=== PATIENT | male | born 1945 | race Caucasian/White ===

== ENCOUNTER 2016-11-14 08:53 | Emergency (ER) | payer MEDICARE ==
[2016-11-14 09:05] VITALS: RESP 18
[2016-11-14] MEDS ORDERED: DIPH,PERTUS(ACELL)TETVAC-LF 0.5 ML VIAL IM ONE (09:33)
[2016-11-14] MEDS ORDERED: DOXYCYCLINE 50 MG CAP PO STA (09:34)
--- NOTE | 2016-11-14 09:49 | ED ---
General Adult HPI - General Chief complaint: Animal Bite Stated complaint: cat scratch Time Seen by Provider: 11/14/16 09:12 Source: patient, RN notes reviewed Mode of arrival: ambulatory Limitations: no limitations - History of Present Illness Initial comments: 71-year-old male presents to the emergency department with a chief complaint of scratch to the right arm. Patient states that they have a cat that is an outdoor cat around the house. Patient states that it has been in the house for about 3 months now. Patient states the cat was started on Versed tried to get him down and on jumping down the cat scratched his arm. Patient does not know if the cat is up-to-date on vaccinations. Patient states that he has not had his tetanus vaccination and he does not know how long. Patient states that he just has the cut to the arm. Patient states he put Neosporin on it and came here. Patient states he hasn't had any fever chills with this. Patient denies any other injuries from the incident.Patient denies any recent fever, chills, shortness of breath, chest pain, back pain, abdominal pain, nausea vomiting, numbness or tingling, dysuria or hematuria, constipation or diarrhea, headaches or visual changes, or any other current symptoms. - Related Data Home Medications Medication Instructions Recorded Confirmed Advanced Memory Complex 1 tab PO DAILY 05/21/15 11/14/16 Bacopin (Herbal Memory Supplement) 1 tab PO DAILY 05/21/15 11/14/16 Multivit-Min/FA/Lycopene/Lut 1 tab PO DAILY 05/21/15 11/14/16 [Centrum Silver Tablet] Pregabalin [Lyrica] 200 mg PO BID 05/21/15 11/14/16 Propranolol [Inderal] 20 mg PO BID 11/14/16 11/14/16 Vitamin B Complex 1 tab PO DAILY 11/14/16 11/14/16 Previous Rx's Medication Instructions Recorded Doxycycline [Vibramycin] 100 mg PO Q12HR #20 capsule 11/14/16 Allergies Allergy/AdvReac Type Severity Reaction Status Date / Time Penicillins Allergy Unknown Verified 11/14/16 09:36 Review of Systems ROS Statement: Those systems with pertinent positive or pertinent negative responses have been documented in the HPI. ROS Other: All systems not noted in ROS Statement are negative. Past Medical History Past Medical History: Cancer, Prostate Disorder Additional Past Medical History / Comment(s): CARTER FEET NEUROPATHY, HX OF STOMACH ULCER, HX PROSTATE CA. 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 Cataract surgery R eye in 2014. Past Anesthesia/Blood Transfusion Reactions: No Reported Reaction Past Psychological History: No Psychological Hx Reported Smoking Status: Former smoker Past Alcohol Use History: Occasional Past Drug Use History: None Reported - Past Family History Mother Family Medical History: No Reported History Brother(s) Family Medical History: Cancer, Deep Vein Thrombosis (DVT) Additional Family Medical History / Comment(s): cancer-unknown General Exam - General Exam Comments Initial Comments: General: The patient is awake and alert, in no distress, and does not appear acutely ill. Neck: The neck is supple, there is no tenderness. Cardiovascular: There is a regular rate and rhythm. No murmur, rub or gallop is appreciated. Respiratory: Lungs are clear to auscultation, respirations are non-labored, breath sounds are equal. No wheezes, stridor, rales, or rhonchi. Musculoskeletal: Sensation intact with 2+ pulses. Full Range of motion of right elbow and right wrist. Patient does appear to have a 6 cm scratch to the right forearm that does have some bleeding at the site. There is no induration or erythema surrounding the area and no purulent drainage. Neurological: CN II-XII intact, There are no obvious motor or sensory deficits. Coordination appears grossly intact. Speech is normal. Skin: Skin is warm and dry and no rashes or lesions are noted. Psychiatric: Normal mood and affect. Limitations: no limitations Course Vital Signs 11/14/16 09:01 Temperature 97.0 F L Pulse Rate 71 Respiratory 18 Rate Blood Pressure 147/79 O2 Sat by Pulse 96 Oximetry Medical Decision Making - Medical Decision Making 71-year-old male presents for a cat scratch to the right arm. This time we discussed the concern for rabies. The family states that they will watch the cat for the next 2 weeks. They discussed that if the Gets sick or ill they will return to the emergency department immediately to have the rabies vaccinations. We did update the patient's tetanus the area was cleaned. We did also inform the patient of the concern for infection with this type of injury. Discussed that these antibiotics may help however they could worsen and he would then require hospitalization and how severe this infection would be. Patient stated he understood and he will keep a close eye in the urine. We did discuss return signs and follow-up. We discussed all the patient's questions. He stated that they do feel comfortable with discharge home. This and we will discharge the patient. - Radiology Data Radiology results: report reviewed, image reviewed Disposition Clinical Impression: Cat scratch of right forearm Disposition: HOME SELF-CARE Condition: Stable Instructions: Animal Bite (ED), Rabies (ED) Additional Instructions: Please use medication as discussed. Please follow up with family doctor if symptoms have not improved over the next two days. Please return to the emergency room if your symptoms increase or worsen or for any other concerns. Prescriptions: Doxycycline [Vibramycin] 100 mg PO Q12HR #20 capsule Referrals: Karthik Manning MD [Primary Care Provider] - 1-2 days Time of Disposition: 10:10
--- NOTE | 2016-11-14 10:09 | XR ---
EXAMINATION TYPE: XR forearm RT DATE OF EXAM: 11/14/2016 9:59 AM CLINICAL HISTORY: pain TECHNIQUE: Frontal and lateral images of the right forearm are obtained. COMPARISON: None. FINDINGS: There is no acute fracture/dislocation evident. The joint spaces appear within normal limi ts. The overlying soft tissue appears unremarkable. IMPRESSION: There is no acute fracture or dislocation. ICD 10 NO FRACTURE, INITIAL EVALUATION
[2016-11-14 10:28] VITALS: BP 147/83; PULSE 73; TEMP 97.2
== END 2016-11-14 10:28 | disposition home or self-care (01) ==
LOC: EC 08:53
DX: S50.811A Abrasion of right forearm, initial encounter (principal); Z23 Encounter for immunization; Z87.891 Personal history of nicotine dependence; Z79.899 Other long term (current) drug therapy; Z88.0 Allergy status to penicillin; W55.03XA Scratched by cat, initial encounter; Y92.009 Unspecified place in unspecified non-institutional (private) residence as the place of occurrence of the external cause
CPT/HCPCS: 90471; 90715; 99283

== ENCOUNTER 2017-01-31 18:20 | Inpatient (IN) | payer MEDICARE ==
[2017-01-31] MEDS ORDERED: SODIUM CHLORIDE 0.9% 1,000 ML IV STA ×3 (18:29→19:22)
[2017-01-31] MEDS ORDERED: SODIUM CHLORIDE 0.9% 500 ML IV STA (18:29)
[2017-01-31] MEDS ORDERED: EPINEPHrine 1 MG/ML 1 ML AMP SQ ONE (18:33)
[2017-01-31] MEDS ORDERED: FAMOTIDINE 20 MG/2 ML VIAL IV STA (18:33)
[2017-01-31 18:35] LABS: Glucose,Whole Blood 116 mg/dL (75-99)
--- NOTE | 2017-01-31 18:39 | ED ---
General Adult HPI - General Stated complaint: Anaphylaxis Time Seen by Provider: 01/31/17 18:29 Source: RN notes reviewed, old records reviewed - History of Present Illness Initial comments: This is a 71-year-old male to the ER for evaluation outpatient coming in severe distress, patient is unable to give history history of from EMS patient's chart and family, patient had anaphylactic bee sting reaction ending in CPR with intubation, and patient is brought to the emergency room - Related Data Home Medications Medication Instructions Recorded Confirmed Bacopin (Herbal Memory Supplement) 1 tab PO DAILY 05/21/15 01/31/17 Multivit-Min/FA/Lycopene/Lut 1 tab PO DAILY 05/21/15 01/31/17 [Centrum Silver Tablet] Pregabalin [Lyrica] 200 mg PO BID 05/21/15 01/31/17 Propranolol [Inderal] 20 mg PO BID 11/14/16 01/31/17 Vitamin B Complex 1 tab PO DAILY 11/14/16 01/31/17 Donepezil [Aricept] 10 mg PO DAILY 01/31/17 01/31/17 Allergies Allergy/AdvReac Type Severity Reaction Status Date / Time Penicillins Allergy Unknown Verified 01/31/17 19:21 Review of Systems ROS Statement: Those systems with pertinent positive or pertinent negative responses have been documented in the HPI. ROS Other: All systems not noted in ROS Statement are negative. Past Medical History Past Medical History: Cancer, Prostate Disorder Additional Past Medical History / Comment(s): CARTER FEET NEUROPATHY, HX OF STOMACH ULCER, HX PROSTATE CA. 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 Cataract surgery R eye in 2014. Past Anesthesia/Blood Transfusion Reactions: No Reported Reaction Past Psychological History: No Psychological Hx Reported Smoking Status: Former smoker Past Alcohol Use History: Occasional Past Drug Use History: None Reported - Past Family History Mother Family Medical History: No Reported History Brother(s) Family Medical History: Cancer, Deep Vein Thrombosis (DVT) Additional Family Medical History / Comment(s): cancer-unknown General Exam Limitations: altered mental status General appearance: alert, lethargic, in distress Head exam: Present: atraumatic, normocephalic, normal inspection Eye exam: Present: normal appearance, PERRL, EOMI. Absent: scleral icterus, conjunctival injection, periorbital swelling ENT exam: Present: normal exam, mucous membranes moist Neck exam: Present: normal inspection. Absent: tenderness, meningismus, lymphadenopathy Respiratory exam: Present: normal lung sounds bilaterally. Absent: respiratory distress, wheezes, rales, rhonchi, stridor Cardiovascular Exam: Present: normal rhythm, tachycardia, normal heart sounds. Absent: systolic murmur, diastolic murmur, rubs, gallop, clicks GI/Abdominal exam: Present: soft, normal bowel sounds. Absent: distended, tenderness, guarding, rebound, rigid Extremities exam: Present: normal inspection, full ROM, normal capillary refill. Absent: tenderness, pedal edema, joint swelling, calf tenderness Back exam: Present: normal inspection Neurological exam: Present: alert, oriented X3, CN II-XII intact Psychiatric exam: Present: normal affect, normal mood Skin exam: Present: warm, dry, intact, normal color. Absent: rash Course Vital Signs 01/31/17 01/31/17 01/31/17 18:26 18:46 18:52 Pulse Rate 98 84 Pulse Rate [ [employer] ] Respiratory 22 28 H 28 H Rate Blood Pressure 104/73 120/90 Blood Pressure [Sitting] O2 Sat by Pulse 96 97 Oximetry 01/31/17 19:03 Pulse Rate Pulse Rate [ 84 [employer] ] Respiratory 26 H Rate Blood Pressure Blood Pressure 120/66 [Sitting] O2 Sat by Pulse 96 Oximetry - Reevaluation(s) Reevaluation #1: 01/31/17 19:27 Upon arrival to emergency room patient is pulling at tube, will ask to be patient and monitor her airway Reevaluation #2: 01/31/17 19:27 Patient is able to speak, blood pressure is normalizing, EKG Findings - EKG Comments: EKG Findings:: EKG shows sinus rhythm rate of 90; P1 60, QRS 86, QTC 492 Medical Decision Making - Medical Decision Making 71 male here for evaluation. Patient's earlier today status post anaphylactic reaction with cardiopulmonary arrest. EMS Ribble retaining spontaneous certainly return of spontaneous circulation, place Pepe tube for breathing, and given epinephrine, patient still having mild airway edema, but able to talk, maintaining alertness with return normalization of vital signs. Patient will be admitted to ICU for hemodynamic monitoring - Lab Data Result diagrams: 01/31/17 18:32 01/31/17 18:32 Lab Results 01/31/17 01/31/17 01/31/17 Range/Units 18:30 18:32 18:32 WBC 7.3 (3.8-10.6) k/uL RBC 5.67 (4.30-5.90) m/uL Hgb 18.0 H (13.0-17.5) gm/dL Hct 55.3 H (39.0-53.0) % MCV 97.5 (80.0-100.0) fL MCH 31.7 (25.0-35.0) pg MCHC 32.5 (31.0-37.0) g/dL RDW 12.7 (11.5-15.5) % Plt Count 192 (150-450) k/uL Neutrophils % 33 % Lymphocytes % 56 % Monocytes % 4 % Eosinophils % 2 % Basophils % 0 % Neutrophils # 2.4 (1.3-7.7) k/uL Lymphocytes # 4.1 (1.0-4.8) k/uL Monocytes # 0.3 (0-1.0) k/uL Eosinophils # 0.1 (0-0.7) k/uL Basophils # 0.0 (0-0.2) k/uL PT (9.0-12.0) sec INR (<1.1) APTT (22.0-30.0) sec Sodium (137-145) mmol/L Potassium (3.5-5.1) mmol/L Chloride (98-107) mmol/L Carbon Dioxide (22-30) mmol/L Anion Gap mmol/L BUN (9-20) mg/dL Creatinine (0.66-1.25) mg/dL Est GFR (MDRD) Af Amer (>60 ml/min/1.73 sqM) Est GFR (MDRD) Non-Af (>60 ml/min/1.73 sqM) Glucose (74-99) mg/dL POC Glucose (mg/dL) 116 H (75-99) mg/dL POC Glu [employer] ID [place] Plasma Lactic Acid Victoriano (0.7-2.0) mmol/L Calcium (8.4-10.2) mg/dL Phosphorus (2.5-4.5) mg/dL Magnesium (1.6-2.3) mg/dL Total Bilirubin (0.2-1.3) mg/dL AST (17-59) U/L ALT (21-72) U/L Alkaline Phosphatase (38-126) U/L Total Creatine Kinase 182 H (55-170) U/L Total Protein (6.3-8.2) g/dL Albumin (3.5-5.0) g/dL 01/31/17 01/31/17 01/31/17 Range/Units 18:32 18:32 18:32 WBC (3.8-10.6) k/uL RBC (4.30-5.90) m/uL Hgb (13.0-17.5) gm/dL Hct (39.0-53.0) % MCV (80.0-100.0) fL MCH (25.0-35.0) pg MCHC (31.0-37.0) g/dL RDW (11.5-15.5) % Plt Count (150-450) k/uL Neutrophils % % Lymphocytes % % Monocytes % % Eosinophils % % Basophils % % Neutrophils # (1.3-7.7) k/uL Lymphocytes # (1.0-4.8) k/uL Monocytes # (0-1.0) k/uL Eosinophils # (0-0.7) k/uL Basophils # (0-0.2) k/uL PT 10.6 (9.0-12.0) sec INR 1.0 (<1.1) APTT 25.2 (22.0-30.0) sec Sodium 142 (137-145) mmol/L Potassium 3.8 (3.5-5.1) mmol/L Chloride 106 (98-107) mmol/L Carbon Dioxide 19 L (22-30) mmol/L Anion Gap 17 mmol/L BUN 12 (9-20) mg/dL Creatinine 1.00 (0.66-1.25) mg/dL Est GFR (MDRD) Af Amer >60 (>60 ml/min/1.73 sqM) Est GFR (MDRD) Non-Af >60 (>60 ml/min/1.73 sqM) Glucose 125 H (74-99) mg/dL POC Glucose (mg/dL) (75-99) mg/dL POC Glu City Secretary ID Plasma Lactic Acid Victoriano 5.6 H* (0.7-2.0) mmol/L Calcium 8.7 (8.4-10.2) mg/dL Phosphorus 6.3 H (2.5-4.5) mg/dL Magnesium 2.0 (1.6-2.3) mg/dL Total Bilirubin 0.6 (0.2-1.3) mg/dL AST 128 H (17-59) U/L ALT 65 (21-72) U/L Alkaline Phosphatase 75 (38-126) U/L Total Creatine Kinase (55-170) U/L Total Protein 6.5 (6.3-8.2) g/dL Albumin 3.8 (3.5-5.0) g/dL - Radiology Data Radiology results: report reviewed (Chest x-ray is negative for acute disease), image reviewed Critical Care Time Critical Care Time: Yes Total Critical Care Time: 31 Disposition Clinical Impression: Allergic reaction, Anaphylaxis, Allergic reaction to insect sting, Cardiopulmonary arrest with successful resuscitation Disposition: ADMITTED IP TO THIS [facility] Condition: Critical Referrals: Karthik Manning MD [Primary Care Provider] - 1-2 days
--- NOTE | 2017-01-31 18:50 | XR ---
EXAMINATION TYPE: XR chest 1V portable DATE OF EXAM: 01/31/2017 COMPARISON: 09/28/2014 HISTORY: Short of breath TECHNIQUE: Single frontal view of the chest is obtained. FINDINGS: There is no heart failure nor confluent pneumonic infiltrate. There are chest leads. Thora cic aorta is atheromatous. There is no pleural effusion. IMPRESSION: No active cardiopulmonary disease. No change. Old right rib fracture noted.
[2017-01-31 19:00] LABS: ALT 65 U/L (21-72); AST 128 U/L (17-59); Alkaline Phosphatase 75 U/L (38-126); Anion Gap 17 mmol/L; Blood Urea Nitrogen 12 mg/dL (9-20); Calcium 8.7 mg/dL (8.4-10.2); Carbon Dioxide 19 mmol/L (22-30); Chloride 106 mmol/L (98-107); Glucose 125 mg/dL (74-99); Non-African American GFR(MDRD) >60 (>60 ml/min/1.73 sqM); Phosphorous 6.3 mg/dL (2.5-4.5); Potassium 3.8 mmol/L (3.5-5.1); Sodium 142 mmol/L (137-145); Total Bilirubin 0.6 mg/dL (0.2-1.3); Total Protein 6.5 g/dL (6.3-8.2)
[2017-01-31 19:04] LABS: Prothrombin Time 10.6 sec (9.0-12.0)
[2017-01-31 19:05] LABS: Partial Thromboplastin Time 25.2 sec (22.0-30.0)
[2017-01-31 19:09] LABS: Creatine Kinase 182 U/L (55-170)
[2017-01-31 19:11] LABS: Aty Lym Flag Slight; Basophils % (A) 0 %; CH 30.9; CHCM 31.8; Eosinophils # (A) 0.1 k/uL (0-0.7); Eosinophils % (A) 2 %; HCT 55.3 % (39.0-53.0); HDW 2.03; Luc # (Auto) 0.34; Luc % (Auto) 5; Lymphocytes # (A) 4.1 k/uL (1.0-4.8); Lymphocytes % (A) 56 %; MCH 31.7 pg (25.0-35.0); MCHC 32.5 g/dL (31.0-37.0); MCV 97.5 fL (80.0-100.0); Mean Platelet Volume 7.5; Monocytes # (A) 0.3 k/uL (0-1.0); Monocytes % (A) 4 %; Neutrophils # (A) 2.4 k/uL (1.3-7.7); Neutrophils % (A) 33 %; RBC 5.67 m/uL (4.30-5.90); RDW 12.7 % (11.5-15.5); WBC 7.3 k/uL (3.8-10.6); WBC (Perox) 7.32
[2017-01-31 19:23] LABS: Creatine Kinase MB 2.2 ng/mL (0.0-2.4); Troponin I <0.012 ng/mL (0.000-0.034)
[2017-01-31] MEDS ORDERED: RACEPINEPHRINE 2.25% NEB 0.5 ML NEBU INHALATION PRN (19:23)
[2017-01-31] MEDS ORDERED: SODIUM CHLORIDE 0.9% NEBULIZ 3 ML INHALATION PRN (19:25)
[2017-01-31] MEDS ORDERED: NALOXONE 0.4 MG/ML 1 ML VIAL IV PRN (20:28)
[2017-01-31 20:59] LABS: Glucose,Whole Blood 130 mg/dL (75-99)
[2017-01-31] MEDS: EPINEPHrine 1 MG/ML 1 ML AMP SQ PRN ×2 (21:14→21:23)
[2017-01-31 22:04] LABS: Appearance,Urine Clear (Clear); Bilirubin,Urine Negative (Negative); Glucose,Urine (UA) Negative (Negative); Ketones,Urine 1+ (Negative); Leukocyte Esterase,Urine Negative (Negative); Nitrite,Urine Negative (Negative); Protein,Urine Trace (Negative); Specific Gravity,Urine 1.017 (1.001-1.035); UA Billing (MACRO vs. MICRO) CHEM; Urobilinogen,Urine <2.0 mg/dL (<2.0)
[2017-01-31 22:35] VITALS: BMI 25.4
[2017-01-31] MEDS ORDERED: THIAMINE 100 MG/ML 2 ML VIAL IM STA (22:51)
[2017-01-31] MEDS ORDERED: LORazepam 2 MG/ML SYRINGE IV PRN ×2 (22:51)
[2017-02-01] MEDS: methylPREDNISolone SOD SUCCI 125 MG/2 ML VIAL IV SCH ×4 (01:02→18:12)
[2017-02-01] MEDS: diphenhydrAMINE 50 MG/ML 1 ML VIAL IVP SCH ×4 (01:04→18:11)
[2017-02-01 04:53] LABS: Basophils % (A) 0 %; CH 31.1; CHCM 31.8; Eosinophils % (A) 0 %; HCT 48.1 % (39.0-53.0); HDW 2.02; HGB 15.6 gm/dL (13.0-17.5); Luc # (Auto) 0.03; Luc % (Auto) 0; Lymphocytes # (A) 0.4 k/uL (1.0-4.8); Lymphocytes % (A) 5 %; MCH 31.8 pg (25.0-35.0); MCHC 32.3 g/dL (31.0-37.0); MCV 98.3 fL (80.0-100.0); Mean Platelet Volume 7.7; Monocytes # (A) 0.2 k/uL (0-1.0); Monocytes % (A) 2 %; Neutrophils # (A) 8.1 k/uL (1.3-7.7); Neutrophils % (A) 92 %; RDW 12.7 % (11.5-15.5); WBC 8.8 k/uL (3.8-10.6); WBC (Perox) 8.81
[2017-02-01 05:25] LABS: ALT 59 U/L (21-72); AST 97 U/L (17-59); Alkaline Phosphatase 54 U/L (38-126); Anion Gap 16 mmol/L; Blood Urea Nitrogen 15 mg/dL (9-20); Carbon Dioxide 15 mmol/L (22-30); Chloride 110 mmol/L (98-107); Glucose 93 mg/dL (74-99); Magnesium 1.7 mg/dL (1.6-2.3); Non-African American GFR(MDRD) >60 (>60 ml/min/1.73 sqM); Potassium 4.7 mmol/L (3.5-5.1); Sodium 141 mmol/L (137-145); Total Bilirubin 0.8 mg/dL (0.2-1.3); Total Protein 5.8 g/dL (6.3-8.2)
[2017-02-01] MEDS ORDERED: FAMOTIDINE 20 MG/2 ML VIAL IV SCH (06:00)
[2017-02-01] MEDS ORDERED: Magnesium Replacement Protocol 1 EACH MISC MISCELLANE PRN (06:11)
[2017-02-01 06:17] LABS: Glucose,Whole Blood 113 mg/dL (75-99)
[2017-02-01] MEDS: MAGNESIUM SULFATE-D5W PMX 1 GM in DEXTROSE/WATER 1 100ML.BAG IVPB SCH ×2 (06:35→07:56)
--- NOTE | 2017-02-01 08:10 | XR ---
EXAMINATION TYPE: XR chest 1V DATE OF EXAM: 02/01/2017 COMPARISON: 01/31/2017 HISTORY: 71-year-old male follow-up exam, shortness of breath. TECHNIQUE: Single frontal view of the chest is obtained. FINDINGS: Cardiac mediastinal silhouette, aorta, and pulmonary vasculature are within normal limits. Minimal bi apical pleural parenchymal scarring. Some strandy atelectasis at the left base. No consolidation or p leural effusion seen. Surgical clips at the GE junction. Old healed right ninth rib fracture. IMPRESSION: Stable exam without acute cardiopulmonary process.
[2017-02-01] MEDS: ENOXAPARIN 40 MG/0.4 ML SYRINGE SQ SCH (08:51)
--- NOTE | 2017-02-01 10:59 | P.CNPUL ---
History of Present Illness Consult date: 02/01/17 Chief complaint: Acute anaphylaxis History of present illness: 69-year-old male patient, with known history of anaphylaxis to bee stings, who was out in the field doing some gardening and overall, when he had a bee sting to his forehead and immediately following that the patient felt ill and sick and he requested a house where he was noted to have fused hives and subsequently he collapsed. This was noted by the daughter what happened to be there and immediately EMS was called and the patient daughter was instructed to give the patient CPR. The daughter did not check pulses. EMS was found to arrive in the scene within few minutes. Intubation was attempted on the field and it failed. Unsure if the patient had significant upper airway edema although this was suspected. The patient was ultimately bagged and moved to the emergency department and [facility]. Note that he had a pulse of the pressure at a time of his transport. Note that the patient was given epinephrine in the field. A Pepe tube was placed for breathing which was pulled out in the emergency department. The patient was evaluated in the ED and he was noted that he had some mild airway edema. He maintained alertness and his vitals normalized. Ultimately got moved to the intensive care unit for further monitoring Overnight, the patient was given 2 rounds of epinephrine 0.3 mg subcu for symptoms of shortness of breath and cough and an swelling in the throat and neck area. His hives has completely subsided. He remained hemodynamically stable throughout his ICU stay. The last shot of epinephrine given to him was around 9 PM. The patient this morning is conversing and talking. No tongue swelling. No lip swelling. No stridor. No shortness of breath. No change in mental status. No hypotension. No other complaints otherwise. Overnight he was given also IV Solu Medrol 60 mg every 6 hours and Benadryl 25 mg every 6 hours. He had alcohol positive in his serum he had he denies to be alcoholic. He drinks about 2-3 beers on a daily basis. No signs of any delirium tremens for now. His lactic acid level at time of admission was 5.6 and dropped down to 3.8. The patient was given a total of 2 L of IV fluids. Urine drug screen was negative. The patient was having some diarrhea knowing that he was on antibiotics for infectious mononucleosis 2 months ago. The stool was negative for C. diff. He has no cardiac history. No pulmonary history. He is an ex- smoker. Chest x-rays clear. Review of Systems All systems: negative Constitutional: Denies chills, Denies fever Eyes: denies blurred vision, denies pain Ears, nose, mouth and throat: Denies headache, Denies sore throat Cardiovascular: Denies chest pain, Denies shortness of breath Respiratory: Reports dyspnea Gastrointestinal: Denies abdominal pain, Denies diarrhea, Denies nausea, Denies vomiting Musculoskeletal: Denies myalgias Integumentary: Denies pruritus, Denies rash Neurological: Denies numbness, Denies weakness Psychiatric: Denies anxiety, Denies depression Endocrine: Denies fatigue, Denies weight change Past Medical History Past Medical History: Cancer, Dementia, Prostate Disorder Additional Past Medical History / Comment(s): Anaphylaxis to bee stings, prostate cancer with a previous prostatectomy, tremors, Alzheimer's dementia, memory deficits, peripheral neuropathy involving the feet for which the patient is on Lyrica, history of infectious mononucleosis History of Any Multi-Drug Resistant Organisms: None Reported Past Surgical History: Hernia Repair, Prostate Surgery Additional Past Surgical History / Comment(s): Left inguinal hernia repair, umbilical hernia repair, prostatectomy, eye surgery for lazy eye, partial gastrectomy approximately 20 years ago for peptic ulcer disease/stomach ulcer, cataract in the right eye Past Anesthesia/Blood Transfusion Reactions: No Reported Reaction Past Psychological History: No Psychological Hx Reported Smoking Status: Former smoker Past Alcohol Use History: Daily, Heavy Additional Past Alcohol Use History / Comment(s): wiskey, beer Past Drug Use History: None Reported - Past Family History Father Family Medical History: Dementia Additional Family Medical History / Comment(s): Alzheimer's Mother Family Medical History: No Reported History Brother(s) Family Medical History: Cancer, Deep Vein Thrombosis (DVT), Myocardial Infarction ([place]) Additional Family Medical History / Comment(s): cancer-unknown. at age 45 of heart attack Medications and Allergies Home Medications Medication Instructions Recorded Confirmed Type Bacopin (Herbal Memory Supplement) 1 tab PO DAILY 05/21/15 01/31/17 History Multivit-Min/FA/Lycopene/Lut 1 tab PO DAILY 05/21/15 01/31/17 History [Centrum Silver Tablet] Pregabalin [Lyrica] 200 mg PO BID 05/21/15 01/31/17 History Propranolol [Inderal] 20 mg PO BID 11/14/16 01/31/17 History Vitamin B Complex 1 tab PO DAILY 11/14/16 01/31/17 History Donepezil [Aricept] 10 mg PO DAILY 01/31/17 01/31/17 History Allergies Allergy/AdvReac Type Severity Reaction Status Date / Time bee venom protein (honey bee) Allergy Severe Anaphylaxis Verified 01/31/17 20:27 venom-honey bee Allergy Severe Anaphylaxis Verified 01/31/17 20:26 Penicillins Allergy Unknown Verified 01/31/17 19:21 Physical Exam Vitals: Vital Signs Temp Pulse Pulse Resp BP BP Pulse Ox 02/01/17 09:04 96 02/01/17 09:00 83 16 127/65 96 02/01/17 08:30 84 22 105/57 96 02/01/17 08:00 80 22 115/64 97 02/01/17 07:30 97.2 F L 86 24 139/73 92 L 02/01/17 07:00 88 23 132/68 96 02/01/17 06:30 79 14 122/64 94 L 02/01/17 06:00 87 25 H 112/64 97 02/01/17 05:30 83 16 128/62 95 02/01/17 05:00 81 11 L 122/68 95 02/01/17 04:30 82 11 L 133/62 95 02/01/17 04:00 97.6 F 82 12 118/68 97 02/01/17 03:30 88 15 126/61 96 02/01/17 03:00 85 17 119/67 97 02/01/17 02:30 88 20 126/66 96 02/01/17 02:00 86 16 130/59 96 02/01/17 01:30 84 14 119/65 96 02/01/17 01:00 85 14 120/65 96 02/01/17 00:30 88 14 119/64 96 02/01/17 00:00 97.7 F 88 16 115/52 98 01/31/17 23:30 91 30 H 104/51 96 01/31/17 23:15 92 25 H 104/51 96 01/31/17 23:00 92 34 H 111/62 97 01/31/17 22:30 89 14 118/64 98 06/28/17 22:00 88 36 H 151/81 96 01/31/17 21:30 77 29 H 96/74 90 L 01/31/17 21:00 97.9 F 93 21 123/67 95 01/31/17 20:59 84 01/31/17 19:54 79 24 110/68 95 01/31/17 19:42 96.2 F L 87 21 118/64 97 01/31/17 19:03 84 26 H 120/66 96 01/31/17 18:52 28 H 01/31/17 18:46 84 28 H 120/90 97 01/31/17 18:35 82 01/31/17 18:26 98 22 104/73 96 01/31/17 18:25 82 Intake and Output 01/31/17 02/01/17 02/01/17 22:59 06:59 14:59 Intake Total 200 800 400 Output Total 110 675 350 Balance 90 125 50 Intake: IV 200 800 400 Magnesium Sulfate-D5w Pmx 200 1 gm In Dextrose/Water 1 100ml.bag @ 100 mls/hr IVPB Q1H GAVINO Rx#: [id number] Sodium Chloride 0.9% 1, 200 800 200 000 ml @ 100 mls/hr IV . Q10H STA Rx#:[id number] Output: Urine 110 675 350 Other: Voiding Method Indwelling Catheter Indwelling Catheter Indwelling Catheter # Bowel Movements 2 Weight 80.5 kg 81.6 kg The patient appeared well nourished and normally developed. Vital signs as documented. Head exam is unremarkable. No scleral icterus or corneal arcus noted. Neck is without jugular venous distension, thyromegaly, or carotid bruits. Carotid upstrokes are brisk bilaterally. Lungs are clear to auscultation and percussion. Cardiac exam reveals the PMI to be normally sized and situated. Rhythm is regular. First and second heart sounds normal. No murmurs, rubs or gallops. Abdominal exam reveals normal bowel sounds, no masses , no organomegaly and no aortic enlargement. Extremities are nonedematous and both femoral and pedal pulses are normal. Skin shows an umbilical hernia that has been repaired and the surgical wound site is dry clean and intact. Results - Laboratory Findings CBC and BMP: 02/01/17 04:21 02/01/17 04:18 PT/INR, D-dimer PT 10.6 sec (9.0-12.0) 01/31/17 18:32 INR 1.0 (<1.1) 01/31/17 18:32 Abnormal lab findings: Abnormal Labs 01/31/17 01/31/17 01/31/17 18:30 18:32 18:32 Hgb 18.0 H Hct 55.3 H Plt Count Neutrophils # Lymphocytes # Chloride Carbon Dioxide Glucose POC Glucose (mg/dL) 116 H Plasma Lactic Acid Victoriano Calcium Phosphorus AST Total Creatine Kinase 182 H Total Protein Albumin Urine Protein Urine Ketones 01/31/17 01/31/17 01/31/17 18:32 18:32 20:57 Hgb Hct Plt Count Neutrophils # Lymphocytes # Chloride Carbon Dioxide 19 L Glucose 125 H POC Glucose (mg/dL) 130 H Plasma Lactic Acid Victoriano 5.6 H* Calcium Phosphorus 6.3 H AST 128 H Total Creatine Kinase Total Protein Albumin Urine Protein Urine Ketones 01/31/17 01/31/17 02/01/17 22:00 22:48 04:18 Hgb Hct Plt Count Neutrophils # Lymphocytes # Chloride 110 H Carbon Dioxide 15 L Glucose POC Glucose (mg/dL) Plasma Lactic Acid Victoriano 3.8 H* Calcium 8.0 L Phosphorus AST 97 H Total Creatine Kinase Total Protein 5.8 L Albumin 3.2 L Urine Protein Trace H Urine Ketones 1+ H 02/01/17 02/01/17 04:21 06:15 Hgb Hct Plt Count 144 L Neutrophils # 8.1 H Lymphocytes # 0.4 L Chloride Carbon Dioxide Glucose POC Glucose (mg/dL) 113 H Plasma Lactic Acid Victoriano Calcium Phosphorus AST Total Creatine Kinase Total Protein Albumin Urine Protein Urine Ketones - Diagnostic Findings Chest x-ray: image reviewed Assessment and Plan Plan: Assessment 1 acute anaphylactic reaction to bee sting complicated by hemodynamic collapse, lactic acidosis, upper airway edema and hives. The patient did not require intubation. The patient was treated with epinephrine, steroids and Benadryl. Last dose of epinephrine was yesterday's around 9 PM. Currently the patient is hemodynamically stable. No signs of any upper airway edema or stridor. No hemodynamic instability at this point. No hives. 2 anion gap metabolic acidosis secondary to lactate 3 suspected alcoholism 4 prostate cancer and a previous prostatectomy 5 peripheral neuropathy 6 dementia on Aricept 7 previous history of anaphylaxis for the same reason, these things Plan The patient is doing well. No major issues for now. He was instructed to care unit dependent with him at all times. The Restrepo catheter will be removed and the patient be offered a diet. Will watch for any signs of delirium tremens. We'll increase out of activity as tolerated. We'll continue the IV Solu- Medrol. We'll switch him to a prednisone burst taper as of tomorrow. Meanwhile , the patient can be moved to a medical floor for further monitoring. We'll also monitor the lactic acidosis per lactic acid levels are low and they're down to 3.8. Resume home outpatient medications. Time with Patient: Greater than 30
[2017-02-01] MEDS: DONEPEZIL 10 MG TAB PO SCH (11:52)
[2017-02-01] MEDS: PROPRANOLOL 20 MG TAB PO SCH ×2 (11:53→22:07)
[2017-02-01] MEDS: PREGABALIN 100 MG CAP PO SCH ×2 (11:55→22:07)
[2017-02-01] MEDS: MULTIVITAMINS, THERA 1 EACH TAB PO SCH (11:58)
[2017-02-01] MEDS: THIAMINE 100 MG TAB PO SCH ×2 (12:04→18:12)
[2017-02-01 12:14] LABS: Glucose,Whole Blood 136 mg/dL (75-99)
[2017-02-01] MEDS: ACETAMINOPHEN TAB 325 MG TAB PO PRN (13:14)
[2017-02-01] MEDS: LORazepam 2 MG/ML SYRINGE IV PRN ×3 (15:07→17:07)
[2017-02-01] MEDS ORDERED: HALOPERIDOL LACTATE 5 MG/ML 1 ML VIAL IVP PRN (15:50)
[2017-02-01] MEDS ORDERED: HALOPERIDOL LACTATE 5 MG/ML 1 ML VIAL IVP ONE (15:52)
[2017-02-02] MEDS: diphenhydrAMINE 50 MG/ML 1 ML VIAL IVP SCH ×2 (00:26→07:39)
[2017-02-02] MEDS: methylPREDNISolone SOD SUCCI 125 MG/2 ML VIAL IV SCH ×3 (00:27→14:35)
[2017-02-02 03:16] LABS: Glucose,Whole Blood 145 mg/dL (75-99)
[2017-02-02 04:41] LABS: Basophils % (A) 0 %; CHCM 32.9; Eosinophils % (A) 0 %; HCT 41.5 % (39.0-53.0); HDW 2.02; HGB 13.8 gm/dL (13.0-17.5); Luc # (Auto) 0.05; Luc % (Auto) 1; Lymphocytes # (A) 0.6 k/uL (1.0-4.8); Lymphocytes % (A) 9 %; MCH 31.5 pg (25.0-35.0); MCHC 33.3 g/dL (31.0-37.0); MCV 94.7 fL (80.0-100.0); Mean Platelet Volume 7.8; Monocytes # (A) 0.4 k/uL (0-1.0); Monocytes % (A) 7 %; Neutrophils % (A) 83 %; RBC 4.38 m/uL (4.30-5.90); RDW 12.7 % (11.5-15.5); WBC (Perox) 6.24
[2017-02-02 04:54] LABS: Anion Gap 6 mmol/L; Blood Urea Nitrogen 16 mg/dL (9-20); Calcium 8.6 mg/dL (8.4-10.2); Carbon Dioxide 25 mmol/L (22-30); Chloride 106 mmol/L (98-107); Glucose 152 mg/dL (74-99); Magnesium 2.3 mg/dL (1.6-2.3); Non-African American GFR(MDRD) >60 (>60 ml/min/1.73 sqM); Phosphorous 2.1 mg/dL (2.5-4.5); Potassium 4.2 mmol/L (3.5-5.1); Sodium 137 mmol/L (137-145)
[2017-02-02 06:17] LABS: Glucose,Whole Blood 142 mg/dL (75-99)
[2017-02-02] MEDS: DONEPEZIL 10 MG TAB PO SCH (08:18)
[2017-02-02] MEDS: ENOXAPARIN 40 MG/0.4 ML SYRINGE SQ SCH (08:19)
[2017-02-02] MEDS: FAMOTIDINE 20 MG TAB PO SCH ×2 (08:19→21:25)
[2017-02-02] MEDS: PREGABALIN 100 MG CAP PO SCH ×2 (08:20→21:25)
[2017-02-02] MEDS: PROPRANOLOL 20 MG TAB PO SCH ×2 (09:24→21:25)
[2017-02-02] MEDS: MULTIVITAMINS, THERA 1 EACH TAB PO SCH (11:24)
[2017-02-02] MEDS: THIAMINE 100 MG TAB PO SCH ×2 (11:24→17:10)
[2017-02-02 12:01] LABS: Glucose,Whole Blood 127 mg/dL (75-99)
--- NOTE | 2017-02-02 12:03 | P.PN ---
Subjective 69-year-old male patient, with known history of anaphylaxis to bee stings, who was out in the field doing some gardening and overall, when he had a bee sting to his forehead and immediately following that the patient felt ill and sick and he requested a house where he was noted to have fused hives and subsequently he collapsed. This was noted by the daughter what happened to be there and immediately EMS was called and the patient daughter was instructed to give the patient CPR. The daughter did not check pulses. EMS was found to arrive in the scene within few minutes. Intubation was attempted on the field and it failed. Unsure if the patient had significant upper airway edema although this was suspected. The patient was ultimately bagged and moved to the emergency department and [facility]. Note that he had a pulse of the pressure at a time of his transport. Note that the patient was given epinephrine in the field. A Pepe tube was placed for breathing which was pulled out in the emergency department. The patient was evaluated in the ED and he was noted that he had some mild airway edema. He maintained alertness and his vitals normalized. Ultimately got moved to the intensive care unit for further monitoring Overnight, the patient was given 2 rounds of epinephrine 0.3 mg subcu for symptoms of shortness of breath and cough and an swelling in the throat and neck area. His hives has completely subsided. He remained hemodynamically stable throughout his ICU stay. The last shot of epinephrine given to him was around 9 PM. The patient this morning is conversing and talking. No tongue swelling. No lip swelling. No stridor. No shortness of breath. No change in mental status. No hypotension. No other complaints otherwise. Overnight he was given also IV Solu Medrol 60 mg every 6 hours and Benadryl 25 mg every 6 hours. He had alcohol positive in his serum he had he denies to be alcoholic. He drinks about 2-3 beers on a daily basis. No signs of any delirium tremens for now. His lactic acid level at time of admission was 5.6 and dropped down to 3.8. The patient was given a total of 2 L of IV fluids. Urine drug screen was negative. The patient was having some diarrhea knowing that he was on antibiotics for infectious mononucleosis 2 months ago. The stool was negative for C. diff. He has no cardiac history. No pulmonary history. He is an ex- smoker. Chest x-rays clear. On 02/02/2017 the patient has completely recovered from his anaphylaxis. No anaphylactic reaction or any other manifestations to suggest that. No neck swelling. No tongue swelling. No leg swelling. No hives. The patient went into delirium tremens yesterday and he was quite restless and agitated and confused. He required Ativan initially which made him more agitated. Subsequently was given a total of 5 mg of Haldol and the last dose of Haldol was 5 PM yesterday. Since then he improved and he seems to be more coherent. This morning is a bit sleepy. He was unable to give me the date. He is a bit unsteady in his gait. His strength is appropriate. He was able to sit up on a chair and he is calm and comfortable without any tremors or any focal neurological deficits. He was aware of his surroundings. He was aware of his location and his family members. Sometimes he is slow in answering questions. This may be a residual drug effect. Today, I think is reasonable to give this patient hospital for another 24 hours for further observation for safety reasons as the patient is recovering from his delirium tremens. He'll be taken off the IV Solu Medrol. Benadryl will be also discontinued. Objective - Vital Signs Vital signs: Vital Signs Temp 98 F 02/02/17 07:49 Pulse 62 02/02/17 07:49 Resp 12 02/02/17 11:18 BP 123/66 02/02/17 07:49 Pulse Ox 91 L 02/02/17 07:49 Intake & Output 02/01/17 02/02/17 02/02/17 18:59 06:59 18:59 Intake Total 1300 80 20 Output Total 600 Balance 700 80 20 Weight 79.8 kg 79.8 kg Intake: IV 700 80 20 0.9 sodium chloride 20 Magnesium Sulfate-D5w Pmx 200 1 gm In Dextrose/Water 1 100ml.bag @ 100 mls/hr IVPB Q1H GAVINO Rx#: [id number] Sodium Chloride 0.9% 1, 500 80 000 ml @ 100 mls/hr IV . Q10H STA Rx#:[id number] Oral 600 Output: Urine 600 Other: Voiding Method Toilet Incontinent Incontinent Urinal # Voids 1 1 - Exam The patient appeared well nourished and normally developed. Vital signs as documented. Head exam is unremarkable. No scleral icterus or corneal arcus noted. Neck is without jugular venous distension, thyromegaly, or carotid bruits. Carotid upstrokes are brisk bilaterally. Lungs are clear to auscultation and percussion. Cardiac exam reveals the PMI to be normally sized and situated. Rhythm is regular. First and second heart sounds normal. No murmurs, rubs or gallops. Abdominal exam reveals normal bowel sounds, no masses , no organomegaly and no aortic enlargement. Extremities are nonedematous and both femoral and pedal pulses are normal. Neurologically, the patient is oa 2- 3. The patient is moving all 4 extremities. A bit unsteady in his gait. No cranial nerve deficits. Speech is appropriate. - Labs CBC & Chem 7: 02/02/17 04:08 02/02/17 04:09 Labs: Abnormal Lab Results - Last 24 Hours (Table) 02/01/17 02/02/17 02/02/17 Range/Units 12:13 03:13 04:08 Plt Count 135 L (150-450) k/uL Lymphocytes # 0.6 L (1.0-4.8) k/uL Creatinine (0.66-1.25) mg/dL Glucose (74-99) mg/dL POC Glucose (mg/dL) 136 H 145 H (75-99) mg/dL Phosphorus (2.5-4.5) mg/dL 02/02/17 02/02/17 Range/Units 04:09 06:13 Plt Count (150-450) k/uL Lymphocytes # (1.0-4.8) k/uL Creatinine 0.60 L (0.66-1.25) mg/dL Glucose 152 H (74-99) mg/dL POC Glucose (mg/dL) 142 H (75-99) mg/dL Phosphorus 2.1 L (2.5-4.5) mg/dL Microbiology - Last 24 Hours (Table) 01/31/17 22:00 Urine Culture - Preliminary Urine,Catheterized Assessment and Plan Plan: Assessment 1 acute anaphylactic reaction to bee sting complicated by hemodynamic collapse, lactic acidosis, upper airway edema and hives. The patient did not require intubation. The patient was treated with epinephrine, steroids and Benadryl. Last dose of epinephrine was yesterday's around 9 PM. Currently the patient is hemodynamically stable. No signs of any upper airway edema or stridor. No hemodynamic instability at this point. No hives. 2 anion gap metabolic acidosis secondary to lactate, recovered and the metabolic acidosis is recovered 3 alcoholism with active delirium tremens, improving 4 prostate cancer and a previous prostatectomy 5 peripheral neuropathy 6 dementia on Aricept 7 previous history of anaphylaxis for the same reason 8 generalized weakness Plan IV fluids to KVO. Advance diet. Stop the IV Solu-Medrol. Stop the Benadryl. Put the patient prednisone burst taper. Moved the patient to a medical floor. I think he needs to be monitored and watched for another 24 hours for safety reasons. There may be some residual drug effect. Probably some residual delirium tremens. He needs to fully recover prior to being discharged home. However he does not need to stay in the ICU. We'll continue to follow.
[2017-02-02] MEDS: predniSONE 10 MG TAB PO SCH (12:25)
[2017-02-02] MEDS: LORazepam 2 MG/ML SYRINGE IV PRN (21:37)
[2017-02-03] MEDS: LORazepam 2 MG/ML SYRINGE IV PRN ×2 (00:33→21:40)
[2017-02-03] MEDS: FAMOTIDINE 20 MG TAB PO SCH ×2 (08:12→21:40)
[2017-02-03] MEDS: DONEPEZIL 10 MG TAB PO SCH (08:12)
[2017-02-03] MEDS: predniSONE 10 MG TAB PO SCH (08:12)
[2017-02-03] MEDS: ENOXAPARIN 40 MG/0.4 ML SYRINGE SQ SCH (08:12)
[2017-02-03] MEDS: PROPRANOLOL 20 MG TAB PO SCH ×2 (08:12→20:41)
[2017-02-03] MEDS: PREGABALIN 100 MG CAP PO SCH ×2 (08:16→20:41)
[2017-02-03] MEDS: ACETAMINOPHEN TAB 325 MG TAB PO PRN (08:16)
[2017-02-03 09:04] LABS: Basophils % (A) 0 %; CH 30.7; CHCM 32.4; Eosinophils % (A) 0 %; HCT 43.5 % (39.0-53.0); HDW 2.02; HGB 14.5 gm/dL (13.0-17.5); Luc # (Auto) 0.08; Luc % (Auto) 1; Lymphocytes % (A) 13 %; MCH 31.7 pg (25.0-35.0); MCHC 33.3 g/dL (31.0-37.0); MCV 95.2 fL (80.0-100.0); Mean Platelet Volume 7.6; Monocytes # (A) 0.5 k/uL (0-1.0); Monocytes % (A) 6 %; Neutrophils # (A) 6.2 k/uL (1.3-7.7); Neutrophils % (A) 80 %; RBC 4.57 m/uL (4.30-5.90); RDW 12.5 % (11.5-15.5); WBC 7.8 k/uL (3.8-10.6); WBC (Perox) 7.99
[2017-02-03 09:25] LABS: Anion Gap 7 mmol/L; Blood Urea Nitrogen 15 mg/dL (9-20); Calcium 8.8 mg/dL (8.4-10.2); Carbon Dioxide 30 mmol/L (22-30); Chloride 103 mmol/L (98-107); Glucose 75 mg/dL (74-99); Magnesium 2.1 mg/dL (1.6-2.3); Non-African American GFR(MDRD) >60 (>60 ml/min/1.73 sqM); Potassium 3.4 mmol/L (3.5-5.1); Sodium 140 mmol/L (137-145)
[2017-02-03] MEDS ORDERED: Potassium Replacement Protocol 1 EACH MISC MISCELLANE PRN (10:39)
[2017-02-03] MEDS: MULTIVITAMINS, THERA 1 EACH TAB PO SCH (11:58)
[2017-02-03] MEDS: THIAMINE 100 MG TAB PO SCH ×2 (11:58→16:54)
[2017-02-03] MEDS: POTASSIUM CHLORIDE ER 20 MEQ TAB.ER PO SCH ×2 (11:58→12:46)
--- NOTE | 2017-02-03 13:27 | P.PN ---
Subjective 69-year-old male patient, with known history of anaphylaxis to bee stings, who was out in the field doing some gardening and overall, when he had a bee sting to his forehead and immediately following that the patient felt ill and sick and he requested a house where he was noted to have fused hives and subsequently he collapsed. This was noted by the daughter what happened to be there and immediately EMS was called and the patient daughter was instructed to give the patient CPR. The daughter did not check pulses. EMS was found to arrive in the scene within few minutes. Intubation was attempted on the field and it failed. Unsure if the patient had significant upper airway edema although this was suspected. The patient was ultimately bagged and moved to the emergency department and [facility]. Note that he had a pulse of the pressure at a time of his transport. Note that the patient was given epinephrine in the field. A Pepe tube was placed for breathing which was pulled out in the emergency department. The patient was evaluated in the ED and he was noted that he had some mild airway edema. He maintained alertness and his vitals normalized. Ultimately got moved to the intensive care unit for further monitoring Overnight, the patient was given 2 rounds of epinephrine 0.3 mg subcu for symptoms of shortness of breath and cough and an swelling in the throat and neck area. His hives has completely subsided. He remained hemodynamically stable throughout his ICU stay. The last shot of epinephrine given to him was around 9 PM. The patient this morning is conversing and talking. No tongue swelling. No lip swelling. No stridor. No shortness of breath. No change in mental status. No hypotension. No other complaints otherwise. Overnight he was given also IV Solu Medrol 60 mg every 6 hours and Benadryl 25 mg every 6 hours. He had alcohol positive in his serum he had he denies to be alcoholic. He drinks about 2-3 beers on a daily basis. No signs of any delirium tremens for now. His lactic acid level at time of admission was 5.6 and dropped down to 3.8. The patient was given a total of 2 L of IV fluids. Urine drug screen was negative. The patient was having some diarrhea knowing that he was on antibiotics for infectious mononucleosis 2 months ago. The stool was negative for C. diff. He has no cardiac history. No pulmonary history. He is an ex- smoker. Chest x-rays clear. On 02/02/2017 the patient has completely recovered from his anaphylaxis. No anaphylactic reaction or any other manifestations to suggest that. No neck swelling. No tongue swelling. No leg swelling. No hives. The patient went into delirium tremens yesterday and he was quite restless and agitated and confused. He required Ativan initially which made him more agitated. Subsequently was given a total of 5 mg of Haldol and the last dose of Haldol was 5 PM yesterday. Since then he improved and he seems to be more coherent. This morning is a bit sleepy. He was unable to give me the date. He is a bit unsteady in his gait. His strength is appropriate. He was able to sit up on a chair and he is calm and comfortable without any tremors or any focal neurological deficits. He was aware of his surroundings. He was aware of his location and his family members. Sometimes he is slow in answering questions. This may be a residual drug effect. Today, I think is reasonable to give this patient hospital for another 24 hours for further observation for safety reasons as the patient is recovering from his delirium tremens. He'll be taken off the IV Solu Medrol. Benadryl will be also discontinued. On 02/03/2017 the patient is doing well. The patient has no specific complaints. He is gradually recovering from his delirium tremens. Is a bit tremulous. At times he is still confused. It was noted that his gait is not completely steady. Otherwise, he is not having any shortness of breath. No signs of any anaphylaxis or angioedema. He is on a prednisone burst taper. He is off the medicine for now. Aricept was restarted. No other significant events over the past 24 hours. Objective - Vital Signs Vital signs: Vital Signs Temp 97.2 F L 02/03/17 07:00 Pulse 64 02/03/17 07:00 Resp 18 02/03/17 08:00 BP 145/79 02/03/17 07:00 Pulse Ox 92 L 02/03/17 07:00 Intake & Output 02/02/17 02/03/17 02/03/17 18:59 06:59 18:59 Intake Total 20 Output Total 50 Balance -30 Weight 79.8 kg Intake: IV 20 0.9 sodium chloride 20 Output: Urine 50 Other: Voiding Method Incontinent Toilet Toilet # Voids 1 1 # Bowel Movements 1 0 - Exam The patient appeared well nourished and normally developed. Vital signs as documented. Head exam is unremarkable. No scleral icterus or corneal arcus noted. Neck is without jugular venous distension, thyromegaly, or carotid bruits. Carotid upstrokes are brisk bilaterally. Lungs are clear to auscultation and percussion. Cardiac exam reveals the PMI to be normally sized and situated. Rhythm is regular. First and second heart sounds normal. No murmurs, rubs or gallops. Abdominal exam reveals normal bowel sounds, no masses , no organomegaly and no aortic enlargement. Extremities are nonedematous and both femoral and pedal pulses are normal. Neurologically, the patient is oa 2- 3. The patient is moving all 4 extremities. A bit unsteady in his gait. No cranial nerve deficits. Speech is appropriate. - Labs CBC & Chem 7: 02/03/17 08:05 02/03/17 08:05 Labs: Abnormal Lab Results - Last 24 Hours (Table) 02/03/17 02/03/17 Range/Units 08:05 08:05 Plt Count 148 L (150-450) k/uL Potassium 3.4 L (3.5-5.1) mmol/L Creatinine 0.60 L (0.66-1.25) mg/dL Phosphorus 2.0 L (2.5-4.5) mg/dL Microbiology - Last 24 Hours (Table) 01/31/17 22:00 Urine Culture - Final Urine,Catheterized Assessment and Plan Plan: Assessment 1 acute anaphylactic reaction to bee sting complicated by hemodynamic collapse, lactic acidosis, upper airway edema and hives. The patient did not require intubation. This has recovered and the patient is back to his baseline. The patient is currently completing a short course of prednisone burst taper starting with 30 mg daily basis. 2 anion gap metabolic acidosis secondary to lactate, recovered and the metabolic acidosis is recovered 3 alcoholism with active delirium tremens, improving 4 prostate cancer and a previous prostatectomy 5 peripheral neuropathy 6 dementia on Aricept 7 previous history of anaphylaxis for the same reason 8 generalized weakness Plan Monitor delirium tremens. Monitor gait. Monitor ability to move around and ambulate. Chest x-ray from yesterday is clear. The patient is having some right shoulder pain for that reason he will have a right shoulder x-ray. I will suggest the PTOT evaluation. My only issues that the patient is a bit unsteady with his gait and is still on and off confused. He was monitored for another 24 hours in the hospital.
--- NOTE | 2017-02-03 14:39 | P.PN ---
Subjective Mr. Henry is a 69-year-old male patient, with known history of anaphylaxis to bee stings, who was out in the field, he had a bee sting to his forehead and immediately following that the patient felt ill and sick. EMS was called and the patient daughter was instructed to give the patient CPR. EMS was found to arrive in the scene within few minutes. The patient was ultimately bagged and moved to the emergency department and [facility]. Note that he had a pulse of the pressure at a time of his transport. Note that the patient was given epinephrine in the field. The patient was evaluated in the ED and he was noted that he had some mild airway edema. He maintained alertness and his vitals normalized. Ultimately got moved to the intensive care unit for further monitoring He was given IV solumedrol, Benadryl and he remained hemodynamically stable throughout his ICU stay. The patient was given a total of 2 L of IV fluids. Urine drug screen was negative. The patient was having some diarrhea knowing that he was on antibiotics for infectious mononucleosis 2 months ago. The stool was negative for C. diff. He has no cardiac history. The patient went into delirium tremens yesterday and he was quite restless and agitated and confused. He required Ativan initially which made him more agitated. Then he also recieved Haldol, that calmed him down. On 02/02/2017 the patient has been transferred out of the ICU to [facility]. He has a sitter at the bed side and he is still confused. As per nursing staff report , he received Ativan only once today. ROS- could not be done as the pt is confused. Objective - Vital Signs Vital signs: Vital Signs Temp 95.9 F L 02/02/17 15:00 Pulse 62 02/02/17 16:00 Resp 20 02/02/17 16:00 BP 126/71 02/02/17 15:00 Pulse Ox 97 02/02/17 15:00 Intake & Output 02/02/17 02/02/17 02/03/17 06:59 18:59 06:59 Intake Total 80 20 Output Total 50 Balance 80 -30 Weight 79.8 kg 79.8 kg Intake: IV 80 20 0.9 sodium chloride 20 Sodium Chloride 0.9% 1, 80 000 ml @ 100 mls/hr IV . Q10H STA Rx#:[id number] Output: Urine 50 Other: Voiding Method Incontinent Incontinent # Voids 1 1 # Bowel Movements 1 - Exam General appearance: somnolent, Head exam: Present: atraumatic, normocephalic, normal inspection Eye exam: PERRL, EOMI. Absent: scleral icterus, conjunctival injection, periorbital swelling Neck exam: Present: normal inspection. Absent: tenderness, meningismus, lymphadenopathy Respiratory exam: Present: normal lung sounds bilaterally. Absent: respiratory distress, wheezes, rales, rhonchi, stridor Cardiovascular Exam: Present: normal rhythm, tachycardia, normal heart sounds. Absent: systolic murmur, diastolic murmur, rubs, gallop, clicks GI/Abdominal exam: Present: soft, normal bowel sounds. Absent: distended, tenderness, guarding, rebound, rigid Extremities exam: Present: normal inspection, full ROM, normal capillary refill. Absent: tenderness, pedal edema, joint swelling, calf tenderness Neurological exam: No focal deficits Skin exam: Present: warm, dry, intact, normal color. Absent: rash - Labs CBC & Chem 7: 02/02/17 04:08 02/02/17 04:09 Labs: Abnormal Lab Results - Last 24 Hours (Table) 02/02/17 02/02/17 02/02/17 Range/Units 03:13 04:08 04:09 Plt Count 135 L (150-450) k/uL Lymphocytes # 0.6 L (1.0-4.8) k/uL Creatinine 0.60 L (0.66-1.25) mg/dL Glucose 152 H (74-99) mg/dL POC Glucose (mg/dL) 145 H (75-99) mg/dL Phosphorus 2.1 L (2.5-4.5) mg/dL 02/02/17 02/02/17 Range/Units 06:13 11:59 Plt Count (150-450) k/uL Lymphocytes # (1.0-4.8) k/uL Creatinine (0.66-1.25) mg/dL Glucose (74-99) mg/dL POC Glucose (mg/dL) 142 H 127 H (75-99) mg/dL Phosphorus (2.5-4.5) mg/dL Microbiology - Last 24 Hours (Table) 06/28/17 22:00 Urine Culture - Final Urine,Catheterized Assessment and Plan Plan: 1 Acute anaphylaxis - secondary to bee sting complicated by hemodynamic collapse , lactic acidosis, upper airway edema and hives. 2. Delirium tremens, improving 3. Alcohol Abuse 4. Prostate cancer and a previous prostatectomy 5. H/o Stomach Cancer in the past. 6.Peripheral neuropathy 7. Dementia. PLAN- Pt has been sent to the Floors from ICU today. His Steroids and Benadryl has been d/c. HE is being monitored for DT and has a sitter by the bed side. C/ w the rest of his medication regimen, Further recs to follow depending on the progress of the pt.
--- NOTE | 2017-02-03 17:23 | XR ---
EXAMINATION TYPE: XR shoulder complete RT DATE OF EXAM: 02/03/2017 COMPARISON: NONE HISTORY: Pain TECHNIQUE: Shoulder examined in 3 used FINDINGS: The humeral head articulates with the glenoid. The acromio-clavicular junction is normal. No acute fractures or dislocations are evident. A follow up study can be performed 7-10 days from acute trauma for continued pain. IMPRESSION: 1. Normal Shoulder
--- NOTE | 2017-02-03 21:30 | P.PN ---
Subjective Mr. Henry is a 69-year-old male patient, with known history of anaphylaxis to bee stings, who was out in the field, he had a bee sting to his forehead and immediately following that the patient felt ill and sick. EMS was called and the patient daughter was instructed to give the patient CPR. EMS was found to arrive in the scene within few minutes. The patient was ultimately bagged and moved to the emergency department and [facility]. Note that he had a pulse of the pressure at a time of his transport. Note that the patient was given epinephrine in the field. The patient was evaluated in the ED and he was noted that he had some mild airway edema. He maintained alertness and his vitals normalized. Ultimately got moved to the intensive care unit for further monitoring He was given IV solumedrol, Benadryl and he remained hemodynamically stable throughout his ICU stay. The patient was given a total of 2 L of IV fluids. Urine drug screen was negative. The patient was having some diarrhea knowing that he was on antibiotics for infectious mononucleosis 2 months ago. The stool was negative for C. diff. He has no cardiac history. The patient went into delirium tremens yesterday and he was quite restless and agitated and confused. He required Ativan initially which made him more agitated. Then he also recieved Haldol, that calmed him down. On 02/02/2017 the patient has been transferred out of the ICU to [facility]. He has a sitter at the bed side and he is still confused. As per nursing staff report , he received Ativan only once today. On 02/03/2017- patient is more alert awake. His is at the bedside today. No new complaints today. REVIEW OF SYSTEMS: PSYCH: Normal psychiatric exam RESPIRATORY: No cough, No SOB, No chest discomfort. : No dysuria or hematuria CARDIAC: No chest pain , shortness of breath , paroxysmal nocturnal dyspnea MUSCULOSKELETAL : No Aches or pains in the joints or muscles. GI: No abdominal pain, Nausea or vomiting. No constipation or diarrhea. Objective - Vital Signs Vital signs: Vital Signs Temp 97.2 F L 02/03/17 07:00 Pulse 64 02/03/17 07:00 Resp 18 02/03/17 08:00 BP 145/79 02/03/17 07:00 Pulse Ox 92 L 02/03/17 07:00 Intake & Output 02/02/17 02/03/17 02/03/17 18:59 06:59 18:59 Intake Total 20 Output Total 50 Balance -30 Weight 79.8 kg Intake: IV 20 0.9 sodium chloride 20 Output: Urine 50 Other: Voiding Method Incontinent Toilet Toilet # Voids 1 1 # Bowel Movements 1 0 - Exam General appearance: somnolent, Head exam: Present: atraumatic, normocephalic, normal inspection Eye exam: PERRL, EOMI. Absent: scleral icterus, conjunctival injection, periorbital swelling Neck exam: Present: normal inspection. Absent: tenderness, meningismus, lymphadenopathy Respiratory exam: Present: normal lung sounds bilaterally. Absent: respiratory distress, wheezes, rales, rhonchi, stridor Cardiovascular Exam: Present: normal rhythm, tachycardia, normal heart sounds. Absent: systolic murmur, diastolic murmur, rubs, gallop, clicks GI/Abdominal exam: Present: soft, normal bowel sounds. Absent: distended, tenderness, guarding, rebound, rigid Extremities exam: Present: normal inspection, full ROM, normal capillary refill. Absent: tenderness, pedal edema, joint swelling, calf tenderness Neurological exam: No focal deficits Skin exam: Present: warm, dry, intact, normal color. Absent: rash Gait - un steady - Labs CBC & Chem 7: 02/03/17 08:05 02/03/17 08:05 Labs: Abnormal Lab Results - Last 24 Hours (Table) 02/03/17 02/03/17 Range/Units 08:05 08:05 Plt Count 148 L (150-450) k/uL Potassium 3.4 L (3.5-5.1) mmol/L Creatinine 0.60 L (0.66-1.25) mg/dL Phosphorus 2.0 L (2.5-4.5) mg/dL Microbiology - Last 24 Hours (Table) 01/31/17 22:00 Urine Culture - Final Urine,Catheterized Assessment and Plan Plan: 1 Acute anaphylaxis - secondary to bee sting complicated by hemodynamic collapse , lactic acidosis, upper airway edema and hives. 2. Delirium tremens, improving 3. Alcohol Abuse 4. Prostate cancer and a previous prostatectomy 5. H/o Stomach Cancer in the past. 6.Peripheral neuropathy 7. Dementia. PLAN- Pt has been sent to the Floors from ICU yesterday. His Steroids and Benadryl has been d/c. He is still on DT precautions but sitter has been discontinued. C/w the rest of his medication regimen. Further recs to follow depending on the progress of the pt. Anticipate his per discharge in the next 24 hours.
[2017-02-04 07:33] VITALS: BP 152/89; PULSE 64; RESP 17; TEMP 98
[2017-02-04 08:16] LABS: Basophils % (A) 0 %; CH 30.8; CHCM 32.5; Eosinophils # (A) 0.1 k/uL (0-0.7); Eosinophils % (A) 1 %; HCT 44.2 % (39.0-53.0); HDW 2.04; HGB 14.7 gm/dL (13.0-17.5); Luc # (Auto) 0.07; Luc % (Auto) 1; Lymphocytes # (A) 1.6 k/uL (1.0-4.8); Lymphocytes % (A) 27 %; MCH 31.7 pg (25.0-35.0); MCHC 33.3 g/dL (31.0-37.0); MCV 95.1 fL (80.0-100.0); Monocytes # (A) 0.5 k/uL (0-1.0); Monocytes % (A) 8 %; Neutrophils # (A) 3.7 k/uL (1.3-7.7); Neutrophils % (A) 63 %; RBC 4.65 m/uL (4.30-5.90); RDW 12.4 % (11.5-15.5); WBC 5.9 k/uL (3.8-10.6); WBC (Perox) 6.05
[2017-02-04 08:24] LABS: Anion Gap 6 mmol/L; Blood Urea Nitrogen 14 mg/dL (9-20); Calcium 8.8 mg/dL (8.4-10.2); Carbon Dioxide 29 mmol/L (22-30); Chloride 103 mmol/L (98-107); Glucose 93 mg/dL (74-99); Magnesium 1.8 mg/dL (1.6-2.3); Non-African American GFR(MDRD) >60 (>60 ml/min/1.73 sqM); Phosphorous 2.8 mg/dL (2.5-4.5); Potassium 3.4 mmol/L (3.5-5.1); Sodium 138 mmol/L (137-145)
[2017-02-04] MEDS: FAMOTIDINE 20 MG TAB PO SCH (08:24)
[2017-02-04] MEDS: ENOXAPARIN 40 MG/0.4 ML SYRINGE SQ SCH (08:24)
[2017-02-04] MEDS: predniSONE 10 MG TAB PO SCH (08:25)
[2017-02-04] MEDS: PROPRANOLOL 20 MG TAB PO SCH (08:25)
[2017-02-04] MEDS: DONEPEZIL 10 MG TAB PO SCH (08:25)
[2017-02-04] MEDS: ACETAMINOPHEN TAB 325 MG TAB PO PRN (08:29)
[2017-02-04] MEDS: PREGABALIN 100 MG CAP PO SCH (08:29)
[2017-02-04] MEDS: POTASSIUM CHLORIDE ER 20 MEQ TAB.ER PO SCH ×2 (11:24→12:20)
--- NOTE | 2017-02-04 11:44 | HP ---
CHIEF COMPLAINT: ( ) HISTORY OF PRESENT ILLNESS: Mr. Henry is a 71-year-old male with a known history of alcohol abuse, history of prostate cancer, status post prostatectomy , Alzheimer's dementia and history of anaphylactic reaction to bee stings previously, was admitted to the hospital due to anaphylactic reaction with bee sting at home. Apparently, patient was working in the garden and he had a bee sting on his forehead. Immediately following that, the patient fell ill and noted to have diffuse hives and subsequently he collapsed. The patient's daughter noted this who happened to be ( ) and they called EMS. Patient was intubated and sedated and was brought to the hospital. The patient was given epinephrine and ( ) while in the ER and subsequently the patient was extubated. Currently being monitored in the ICU. The patient also having alcohol abuse and currently in delirium tremens and unable to hold him on the bed. The patient has been otherwise hallucinating and getting out of the bed. Currently, the patient denied any complaints of difficulty breathing or swallowing. No cough, shortness of breath or chest pain. Otherwise, patient does drink about 2 to 3 beers on a daily basis. Patient was on antibiotics for infectious mononucleosis 2 months ago. REVIEW OF SYSTEMS: CONSTITUTIONAL: No fever, no chills. EYES: Denied any blurred vision. Denied any pain. CARDIOVASCULAR: No chest pain. No short of breath. No leg swelling. RESPIRATORY: The patient does have short of breath and no cough or sputum production. ABDOMEN: No nausea, vomiting or abdominal pain. Patient did have a diarrhea. GENITOURINARY: No dysuria or hematuria. MUSCULOSKELETAL: No joint swelling or deformity. NEUROLOGIC: No headache or dizziness or lightheadedness. PSYCHIATRIC: The patient is anxious and getting out of bed and delirium tremens. All other 14-point review of systems negative except the above. PAST MEDICAL HISTORY: History of prostate cancer, status post prostatectomy, dementia, tremors, Alzheimer's dementia, memory deficits, peripheral neuropathy , recent history of infectious mononucleosis. PAST SURGICAL HISTORY: Hernia repair, prostate surgery, left inguinal hernia repair, umbilical hernia repair, prostatectomy, eye surgery for lazy eye, partial gastrectomy approximately 20 years ago for peptic ulcer disease, cataracts in the right eye. SOCIAL HISTORY: The patient is a former smoker, used to smoke more than a pack a day. Does use beer, 3 to 4 beers a day. He used to drink whiskey as well. Denied any marijuana, denied any drugs or IVDU. FAMILY HISTORY: Father had dementia, mother had ( ) history, brother had cancer, DVT and [place], at the age of 45 of heart attack. HOME MEDICATIONS: 1. Bacopin, herbal memory supplement. 2. Multivitamins. 3. Pregabalin. 4. Propranolol. 5 Vitamin B complex. 6. Aricept. ALLERGIES: BEE VENOM, PENICILLINS. PHYSICAL EXAMINATION: A 71-year-old male lying in the bed, awake, alert, appears to be in distress and getting out of bed. VITALS: Blood pressure is 137/72, pulse is 89, respirations 29, pulse ox 96% on room air. HEENT: Atraumatic, normocephalic. NECK: Supple. No JVD. CVS EXAM; S1, S2 heard. No murmurs, no gallop. Patient is tachycardiac. ABDOMEN: No nausea, vomiting or abdominal pain. No diarrhea. GENITOURINARY: No dysuria. No hematuria. 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 Able to move all his extremities. No focal neurologic deficits. EXTREMITIES: No edema. Pulses palpable bilaterally. No clubbing or cyanosis. PSYCHIATRIC: Noncooperative. The patient is getting out of bed, could not ( ) completely. LABORATORY DATA: WBC 8.8, hemoglobin 15.6, platelets 144. Sodium 141, potassium 4.7, chloride 110, bicarb is 15, anion gap is 16. Lactic acid was 3.8. AST 97, ALT 59, Albumin 3.2. UA negative for infection. UDS is negative. Serum alcohol 124. IMPRESSION: 1. Acute anaphylactic reaction to bee sting with hemodynamic collapse. 2. Acute hypoxic respiratory failure secondary to anaphylactic reaction, successfully extubated now. 3. ( ) gap metabolic acidosis secondary to lactic acidosis and alcohol. 4. Alcohol abuse currently in delirium tremens. 5. Thrombocytopenia secondary to alcohol abuse. 6. Acute alcohol intoxication with alcohol level of 124 on admission. 7. History of prostate cancer with history of prostatectomy. 8. Peripheral neuropathy. 9. Alzheimer's dementia, currently on Aricept. 10. Previous history of anaphylactic reaction to the BEE STING. DISCUSSION AND PLAN: The patient will be continued on ( ) 60 mg q.6 hourly and ( ) p.r.n. We will continue to monitor the patient in the ICU for delirium tremens. Continue with Ativan. The patient was also given Haldol in the afternoon today. We will continue the hydration and thiamine and folic acid supplements.Continued with GI and DVT prophylaxis. Will follow closely. Further recommendations based on the clinical course. MTDD
[2017-02-04] MEDS: THIAMINE 100 MG TAB PO SCH (12:20)
[2017-02-04] MEDS: MULTIVITAMINS, THERA 1 EACH TAB PO SCH (12:20)
--- NOTE | 2017-02-04 14:00 | P.PN ---
Subjective 69-year-old male patient, with known history of anaphylaxis to bee stings, who was out in the field doing some gardening and overall, when he had a bee sting to his forehead and immediately following that the patient felt ill and sick and he requested a house where he was noted to have fused hives and subsequently he collapsed. This was noted by the daughter what happened to be there and immediately EMS was called and the patient daughter was instructed to give the patient CPR. The daughter did not check pulses. EMS was found to arrive in the scene within few minutes. Intubation was attempted on the field and it failed. Unsure if the patient had significant upper airway edema although this was suspected. The patient was ultimately bagged and moved to the emergency department and [facility]. Note that he had a pulse of the pressure at a time of his transport. Note that the patient was given epinephrine in the field. A Pepe tube was placed for breathing which was pulled out in the emergency department. The patient was evaluated in the ED and he was noted that he had some mild airway edema. He maintained alertness and his vitals normalized. Ultimately got moved to the intensive care unit for further monitoring Overnight, the patient was given 2 rounds of epinephrine 0.3 mg subcu for symptoms of shortness of breath and cough and an swelling in the throat and neck area. His hives has completely subsided. He remained hemodynamically stable throughout his ICU stay. The last shot of epinephrine given to him was around 9 PM. The patient this morning is conversing and talking. No tongue swelling. No lip swelling. No stridor. No shortness of breath. No change in mental status. No hypotension. No other complaints otherwise. Overnight he was given also IV Solu Medrol 60 mg every 6 hours and Benadryl 25 mg every 6 hours. He had alcohol positive in his serum he had he denies to be alcoholic. He drinks about 2-3 beers on a daily basis. No signs of any delirium tremens for now. His lactic acid level at time of admission was 5.6 and dropped down to 3.8. The patient was given a total of 2 L of IV fluids. Urine drug screen was negative. The patient was having some diarrhea knowing that he was on antibiotics for infectious mononucleosis 2 months ago. The stool was negative for C. diff. He has no cardiac history. No pulmonary history. He is an ex- smoker. Chest x-rays clear. On 02/02/2017 the patient has completely recovered from his anaphylaxis. No anaphylactic reaction or any other manifestations to suggest that. No neck swelling. No tongue swelling. No leg swelling. No hives. The patient went into delirium tremens yesterday and he was quite restless and agitated and confused. He required Ativan initially which made him more agitated. Subsequently was given a total of 5 mg of Haldol and the last dose of Haldol was 5 PM yesterday. Since then he improved and he seems to be more coherent. This morning is a bit sleepy. He was unable to give me the date. He is a bit unsteady in his gait. His strength is appropriate. He was able to sit up on a chair and he is calm and comfortable without any tremors or any focal neurological deficits. He was aware of his surroundings. He was aware of his location and his family members. Sometimes he is slow in answering questions. This may be a residual drug effect. Today, I think is reasonable to give this patient hospital for another 24 hours for further observation for safety reasons as the patient is recovering from his delirium tremens. He'll be taken off the IV Solu Medrol. Benadryl will be also discontinued. On 02/03/2017 the patient is doing well. The patient has no specific complaints. He is gradually recovering from his delirium tremens. Is a bit tremulous. At times he is still confused. It was noted that his gait is not completely steady. Otherwise, he is not having any shortness of breath. No signs of any anaphylaxis or angioedema. He is on a prednisone burst taper. He is off the medicine for now. Aricept was restarted. No other significant events over the past 24 hours. On 02/04/2017 the patient is feeling better. No tremors. No confusion. Much more cohesive and coherent. Ambulating. No new complaints for now. No swelling in the neck throat. No change in his speech. No change in mental status. Objective - Vital Signs Vital signs: Vital Signs Temp 98 F 02/04/17 07:00 Pulse 64 02/04/17 07:00 Resp 17 02/04/17 07:00 BP 152/89 02/04/17 07:00 Pulse Ox 92 L 02/04/17 07:00 Intake & Output 02/03/17 02/04/17 02/04/17 18:59 06:59 18:59 Intake Total 975 Output Total 50 Balance 925 Intake: Oral 975 Output: Urine 50 Other: Voiding Method Toilet Toilet Toilet # Voids 6 1 # Bowel Movements 1 0 - Exam The patient appeared well nourished and normally developed. Vital signs as documented. Head exam is unremarkable. No scleral icterus or corneal arcus noted. Neck is without jugular venous distension, thyromegaly, or carotid bruits. Carotid upstrokes are brisk bilaterally. Lungs are clear to auscultation and percussion. Cardiac exam reveals the PMI to be normally sized and situated. Rhythm is regular. First and second heart sounds normal. No murmurs, rubs or gallops. Abdominal exam reveals normal bowel sounds, no masses , no organomegaly and no aortic enlargement. Extremities are nonedematous and both femoral and pedal pulses are normal. Neurologically, the patient is oa 2- 3. The patient is moving all 4 extremities. A bit unsteady in his gait. No cranial nerve deficits. Speech is appropriate. - Labs CBC & Chem 7: 02/04/17 07:59 02/04/17 07:59 Labs: Abnormal Lab Results - Last 24 Hours (Table) 02/04/17 02/04/17 Range/Units 07:59 07:59 Plt Count 134 L (150-450) k/uL Potassium 3.4 L (3.5-5.1) mmol/L Assessment and Plan Plan: Assessment 1 acute anaphylactic reaction to bee sting complicated by hemodynamic collapse, lactic acidosis, upper airway edema and hives. This has recovered. 2 anion gap metabolic acidosis secondary to lactate, recovered and the metabolic acidosis is recovered 3 alcoholism with active delirium tremens, recovered 4 prostate cancer and a previous prostatectomy 5 peripheral neuropathy 6 dementia on Aricept 7 previous history of anaphylaxis for the same reason 8 generalized weakness Plan Complete a prednisone burst taper at home. Good for discharge from a pulmonary standpoint.
--- NOTE | 2017-02-05 01:02 | P.DS ---
Providers Date of admission: 01/31/17 19:21 Attending physician: Kera Roy Consults: 01/31/17 19:21 Consult Physician Routine Consulting Provider: Holland Nunez Consult Reason/Comments: icu Do you want consulting provider notified?: Already Contacted Consult Physician Routine Consulting Provider: Robles Christian Reason/Comments: airway edema Do you want consulting provider notified?: Yes Primary care physician: [facility] Course: Mr. Henry is a 69-year-old male patient, with known history of anaphylaxis to bee stings, who was out in the field, he had a bee sting to his forehead and immediately following that the patient felt ill and sick. EMS was called and the patient daughter was instructed to give the patient CPR. EMS was found to arrive in the scene within few minutes. The patient was ultimately bagged and moved to the emergency department and [facility]. Note that he had a pulse of the pressure at a time of his transport. Note that the patient was given epinephrine in the field. The patient was evaluated in the ED and he was noted that he had some mild airway edema. He maintained alertness and his vitals normalized. Ultimately got moved to the intensive care unit for further monitoring He was given IV solumedrol, Benadryl and he remained hemodynamically stable throughout his ICU stay. The patient was given a total of 2 L of IV fluids. Urine drug screen was negative. The patient was having some diarrhea knowing that he was on antibiotics for infectious mononucleosis 2 months ago. The stool was negative for C. diff. He has no cardiac history. The patient went into delirium tremens yesterday and he was quite restless and agitated and confused. He required Ativan initially which made him more agitated. Then he also received Haldol, that calmed him down. On 02/02/2017 the patient has been transferred out of the ICU to [facility]. He has a sitter at the bed side and he is still confused. As per nursing staff report , he received Ativan only once today. On 02/03/2017- patient is more alert awake. His is at the bedside today. No new complaints today. On 02/04/17 - pt's mentation is back to base line and his gait is more steady. He is being discharged home today on Prednisone burst taper and Epipen. . DISCHARGE DIAGNOSIS 1 Acute anaphylaxis - secondary to bee sting complicated by hemodynamic collapse , lactic acidosis, upper airway edema and hives. 2. Delirium tremens 3. Alcohol Abuse 4. Prostate cancer and a previous prostatectomy 5. H/o Stomach Cancer in the past. 6.Peripheral neuropathy 7. Dementia. more than 35 mins spent towards the discharge of the pt. Patient Condition at Discharge: Critical Plan - Discharge Summary New Discharge Prescriptions: New EPINEPHrine [Epipen 2-Timbo] 0.3 mg IM ONCE PRN #1 ml PRN Reason: Anaphylaxis Famotidine [Pepcid] 20 mg PO Q12HR #60 tab Thiamine [Vitamin B-1] 100 mg PO BID@1200,1700 #30 tab predniSONE 5 mg PO DAILY #2 tab predniSONE 10 mg PO DAILY #2 tab predniSONE 20 mg PO DAILY #2 tab predniSONE 30 mg PO DAILY #2 tab Continue Pregabalin [Lyrica] 200 mg PO BID Multivit-Min/FA/Lycopene/Lut [Centrum Silver Tablet] 1 tab PO DAILY Bacopin (Herbal Memory Supplement) 1 tab PO DAILY Propranolol [Inderal] 20 mg PO BID Vitamin B Complex 1 tab PO DAILY Donepezil [Aricept] 10 mg PO DAILY Discharge Medication List Bacopin (Herbal Memory Supplement) 1 tab PO DAILY 05/21/15 [History] Multivit-Min/FA/Lycopene/Lut [Centrum Silver Tablet] 1 tab PO DAILY 05/21/15 [ History] Pregabalin [Lyrica] 200 mg PO BID 05/21/15 [History] Propranolol [Inderal] 20 mg PO BID 11/14/16 [History] Vitamin B Complex 1 tab PO DAILY 11/14/16 [History] Donepezil [Aricept] 10 mg PO DAILY 01/31/17 [History] EPINEPHrine [Epipen 2-Timbo] 0.3 mg IM ONCE PRN #1 ml 02/04/17 [Rx] Famotidine [Pepcid] 20 mg PO Q12HR #60 tab 02/04/17 [Rx] Thiamine [Vitamin B-1] 100 mg PO BID@1200,1700 #30 tab 02/04/17 [Rx] predniSONE 5 mg PO DAILY #2 tab 02/04/17 [Rx] predniSONE 10 mg PO DAILY #2 tab 02/04/17 [Rx] predniSONE 20 mg PO DAILY #2 tab 02/04/17 [Rx] predniSONE 30 mg PO DAILY #2 tab 02/04/17 [Rx] Follow up Appointment(s)/Referral(s): Karthik Manning MD [Primary Care Provider] - 1-2 days Patient Instructions/Handouts: Insect Bite or Sting (DC), Anaphylaxis (DC), Abuse of Alcohol (DC) Discharge Disposition: HOME SELF-CARE
== END 2017-02-04 13:24 | disposition home or self-care (01) | DRG 917 ==
LOC: EC 18:20 → 6ICU 19:21 → 6SEL 02-01 20:30 → 6ICU 02-01 20:51 → 4MS4W 02-02 14:06
PROVIDERS: ADMIT Hospitalist; ATTEND Hospitalist
DX: T63.441A Toxic effect of venom of bees, accidental (unintentional), initial encounter (principal); J96.01 Acute respiratory failure with hypoxia; I46.8 Cardiac arrest due to other underlying condition; E87.2 Acidosis; F10.221 Alcohol dependence with intoxication delirium; T78.2XXA Anaphylactic shock, unspecified, initial encounter; G62.9 Polyneuropathy, unspecified; D69.59 Other secondary thrombocytopenia; G30.9 Alzheimer's disease, unspecified; F02.80 Dementia in other diseases classified elsewhere, unspecified severity, without behavioral disturbance, psychotic disturbance, mood disturbance, and anxiety; L50.8 Other urticaria; R19.7 Diarrhea, unspecified; R32 Unspecified urinary incontinence; Z79.899 Other long term (current) drug therapy; Z91.030 Bee allergy status; Z88.0 Allergy status to penicillin; Z85.028 Personal history of other malignant neoplasm of stomach; Z85.46 Personal history of malignant neoplasm of prostate; Z87.891 Personal history of nicotine dependence; Z87.892 Personal history of anaphylaxis; Z80.9 Family history of malignant neoplasm, unspecified; Z82.49 Family history of ischemic heart disease and other diseases of the circulatory system; Y92.89 Other specified places as the place of occurrence of the external cause
CPT/HCPCS: 36415; 71010; 80048; 80053; 80306; 80320; 81003; 82550; 82553; 83605; 83735; 83880; 84100; 84484; 85025; 85610; 85730; 87086; 87324; 93005

== ENCOUNTER → 2017-02-10 | Outpatient (CLI) | payer MEDICARE ==
[2017-02-10 11:46] LABS: Cholesterol 181 mg/dL (<200); HDL Cholesterol 65 mg/dL (40-60); Triglycerides 80 mg/dL (<150)
[2017-02-10 12:34] LABS: Hepatitis C Virus IgG Ab Negative (Negative); Hepatitis C Virus IgG Index 0.02
[2017-02-10 13:14] LABS: Prostate Specific Antigen <0.06 ng/mL (0.00-4.00)
== END | disposition home or self-care (01) ==
LOC: LABWHC1 10:45
PROVIDERS: ATTEND Family Medicine
DX: Z00.00 Encounter for general adult medical examination without abnormal findings (principal); Z11.59 Encounter for screening for other viral diseases; Z12.5 Encounter for screening for malignant neoplasm of prostate
CPT/HCPCS: 36415; 80061; 84153; 86803